=== PATIENT | female | born 1985 | race Caucasian/White ===

== ENCOUNTER 2019-08-19 12:29 | Emergency (ER) | payer MEDICAID ==
[~2019-08-19] VITALS: Ht 147.3 cm; Wt 73.0 kg
[2019-08-19] MEDS ORDERED: SODIUM CHLORIDE 0.9% 1,000ML IVBOLUS ONE ×2 (13:00→14:00)
[2019-08-19] MEDS ORDERED: SODIUM CHLORIDE FLUSH 10ML SYR IVF ONE (13:00)
[2019-08-19] MEDS ORDERED: IBUPROFEN 600 MG TABLET PO ONE (13:00)
[2019-08-19 13:27] LABS: BASOPHILS # (AUTO) 0.01 x10^3/uL (0-0.1); BASOPHILS % (AUTO) 0 % (0-1); EOSINOPHILS # (AUTO) 0.04 x10^3/uL (0-0.4); EOSINOPHILS % (AUTO) 1 % (1-7); LYMPHOCYTES % (AUTO) 8 % (22-44); MD NO; MEAN CORPUSCULAR HEMOGLOBIN 31.7 pg (27.0-34.8); MEAN CORPUSCULAR VOLUME 93.3 fL (80-100); MEAN PLATELET VOLUME 7.6 fL (7.4-10.4); MONOCYTES % (AUTO) 8 % (2-9); NEUTROPHILS # (AUTO) 5.97 x10^3/uL (1.8-6.8); NEUTROPHILS % (AUTO) 83 % (42-75); PLATELET COUNT 323 x10^3/uL (130-400); RED BLOOD COUNT 3.89 x10^6/uL (3.82-5.3); RED CELL DISTRIBUTION WIDTH 13.4 % (9.6-15.2)
[2019-08-19] MEDS ORDERED: PLEASE ENTER ALLERGIES MC SCH (13:30)
[2019-08-19 13:45] LABS: RAPID INFLUENZA A Negative (Negative); RAPID INFLUENZA B Negative (Negative)
[2019-08-19] MEDS ORDERED: IBUPROFEN 200 MG TABLET ONE (13:47)
[2019-08-19 13:48] LABS: ALBUMIN 3.7 g/dL (3.4-5.0); ANION GAP 11 mmol/L (5-15); CHLORIDE 107 mmol/L (98-107)
[2019-08-19 13:51] LABS: ALANINE AMINOTRANSFERASE 18 U/L (12-78); ALKALINE PHOSPHATASE 91 U/L (45-117); BILIRUBIN,TOTAL 0.5 mg/dL (0.2-1.0); CREATININE 0.71 mg/dL (0.55-1.02); TOTAL PROTEIN 8.3 g/dL (6.4-8.2)
--- NOTE | 2019-08-19 14:31 | NUR ---
Note claudio in EDM - 08/19/19 at 1432 by [facility] TASK RN: FIRST CONTACT WITH PT. LUNCH TRAY PROVIDED. UA SENT TO LAB. WARM BLANKET AND WATER PROVIDED PER PT REQUEST. NADN. NO NEEDS EXPRESSED AT THIS TIME.
--- NOTE | 2019-08-19 14:42 | NUR ---
TASK RN: FIRST CONTACT WITH PT. UA SENT TO LAB. PT ASSISTED SBA TO RESTROOM. PT PLACED BACK ON HYBRID CORN BREEDER, SPO2 MONITOR, AND NIBP. CALL LIGHT WITHIN REACH. WARM BLANKET PROVIDED PER REQUEST.
[2019-08-19 15:11] LABS: MICROSCOPIC NOT IND
[2019-08-19 15:29] LABS: CULTURE INDICATED? NO
[2019-08-19] MEDS ORDERED: KETOROLAC 30 MG/1 ML ONE (16:16)
[2019-08-19] MEDS ORDERED: POTASSIUM CHLORIDE 20 MEQ PACKET ONE (16:16)
[2019-08-19] MEDS: POTASSIUM CHLORIDE 20 MEQ PACKET PO ONE ×2 (16:21→18:51)
[2019-08-19 16:24] VITALS: BP 118/73
[2019-08-19] MEDS ORDERED: KETOROLAC 30 MG/1 ML IVPush ONE (16:30)
[2019-08-19] MEDS ORDERED: MECLIZINE CHEWABLE 25 MG TAB ONE (16:54)
[2019-08-19] MEDS ORDERED: POTASSIUM CHLORIDE 20 MEQ TAB.ER.PRT ONE (17:45)
[2019-08-19] MEDS ORDERED: METOCLOPRAMIDE 5 MG/ML, 2ML ONE (17:55)
[2019-08-19] MEDS ORDERED: ACETAMINOPHEN 500 MG TABLET ONE (17:55)
[2019-08-19] MEDS ORDERED: MECLIZINE CHEWABLE 25 MG TAB PO ONE (18:00)
[2019-08-19] MEDS ORDERED: METOCLOPRAMIDE 5 MG/ML, 2ML IVPush ONE (18:00)
[2019-08-19] MEDS ORDERED: ACETAMINOPHEN 500 MG TABLET PO ONE (18:00)
[2019-08-19] MEDS ORDERED: POTASSIUM CHLORIDE 20 MEQ TAB.ER.PRT PO ONE (18:00)
--- NOTE | 2019-08-19 18:38 | NUR ---
NOTIFIED DR. CHRISTIAN THAT PATIENT WAS ABLE TO AMBULATE TO BATHROOM.
--- NOTE | 2019-08-19 19:17 | NUR ---
Patient given discharge instructions and they have confirmed that they understand the instructions. Patient ambulatory with steady gait.
== END 2019-08-19 19:18 | disposition home or self-care (01) ==
LOC: ED 18:40
DX: R51 Headache (principal); B34.9 Viral infection, unspecified; R50.9 Fever, unspecified; R11.0 Nausea; R00.0 Tachycardia, unspecified; R42 Dizziness and giddiness; M79.10 Myalgia, unspecified site
CPT/HCPCS: 36415; 71045; 80053; 81003; 83605; 84145; 85025; 87040; 87081; 87400; 87880; 93005; 96361; 96374; 96375; 99285; J1885; J2765; J7030